=== PATIENT | male | born 1965 | race Caucasian/White ===

== ENCOUNTER → 2016-10-08 | Outpatient (CLI) | payer OTHER ==
--- NOTE | 2016-10-08 10:50 | REP ---
MRI LUMBAR SPINE WITHOUT CONTRAST: HISTORY: Radiculitis. Decreased signal intensity on T2-weighted images is present in the T12-L1 through L2-3 and L5-S1 intervertebral discs. The discs are decreased in height. These findings are consistent with disc degeneration. There is no disc bulge or herniation at the L1-2 through L3-4 levels. The nerves exit the neural foramina without compression. A diffuse disc bulge is present at the L4-5 level. There is minimal compression of the thecal sac. The L4 nerves exit the neural foramina without compression. A diffuse disc bulge and mild size disc extrusion central and eccentric to the left are present at the L5-S1 level. There is superior migration of disc material. There is minimal compression of the thecal sac and left S1 nerve as it exits the thecal sac. The disc extrusion abuts the right S1 nerve. The L5 nerves exit the neural foramina without compression. The conus medullaris is normal in appearance terminating at the level of the T12-L1 intervertebral disc. Normal signal intensity is present in the lumbar vertebral bodies. IMPRESSION: 1. Diffuse disc bulge at the L4-5 level with minimal thecal sac compression. 2. Diffuse disc bulge and mild size disc extrusion central and eccentric to the left at the L5-S1 level with minimal compression of the thecal sac and left S1 nerve as it exits the thecal sac. Signed by Samir Lezama MD 10/08/2016 10:52 A
== END ==
LOC: M RAD 09:23
PROVIDERS: ATTEND Pain Medicine Interventional Pain Medicine
DX: M51.26 Other intervertebral disc displacement, lumbar region (principal); M51.27 Other intervertebral disc displacement, lumbosacral region; M47.816 Spondylosis without myelopathy or radiculopathy, lumbar region; M47.817 Spondylosis without myelopathy or radiculopathy, lumbosacral region; M51.36 Other intervertebral disc degeneration, lumbar region; M51.37 Other intervertebral disc degeneration, lumbosacral region; M54.16 Radiculopathy, lumbar region

== ENCOUNTER → 2016-11-21 | Outpatient (CLI) | payer OTHER ==
[~2016-11-21] VITALS: Ht 175.3 cm; Wt 104.3 kg
[~2016-11-21] MED LIST: ATEN50TA2 PO; FISH1000 PO; MULT1TAB18 PO; NS 1,000 ML IV SCH; PANT40TA2 PO; PROPOFOL 200 MG/20 ML VIAL As Ordered ONE
--- NOTE | 2016-11-21 08:16 | ROOR ---
Patient Name: Bernard Eden Procedure Date: 11/21/2016 7:53 AM Date of : 1965 Age: 51 Room: [facility], [facility]IN [facility] Gender: Male Note Status: Finalized Procedure: Colonoscopy to Cecum + ileoscopy Indications: Abdominal pain in the right lower quadrant, Abnormal CT of the GI tract Providers: Eddy Da Silva MD Referring MD: Evelyn Khan DO Requesting Provider: Medicines: Monitored Anesthesia Care Complications: No immediate complications. Procedure: Pre-Anesthesia Assessment: - The heart rate, respiratory rate, oxygen saturations, blood pressure, adequacy of pulmonary ventilation, and response to care were monitored throughout the procedure. The Colonoscope was introduced through the anus and advanced to 3 cm into the ileum. The colonoscopy was performed without difficulty. The patient tolerated the procedure well. The quality of the bowel preparation was good. Findings: The perianal and digital rectal examinations were normal. Non-bleeding internal hemorrhoids were found during retroflexion. The hemorrhoids were small and Grade I (internal hemorrhoids that do not prolapse). No other significant abnormalities were identified in a careful examination of the remainder of the colon. The exam was otherwise without abnormality. The distal ileum contained a few ulcers. Impression: - Non-bleeding internal hemorrhoids. - The examination was otherwise normal. - A few ulcers in the distal ileum. - No specimens collected. - The exam was otherwise normal to the cecum. Recommendation: - Patient has a contact number available for emergencies. The signs and symptoms of potential delayed complications were discussed with the patient. Return to normal activities tomorrow. Written discharge instructions were provided to the patient. - High fiber diet. - Discharge patient to home. - Continue present medications. - Repeat colonoscopy in 10 years for screening purposes. - Return to referring physician. - The findings and recommendations were discussed with the patient's family. Eddy Da Silva MD Eddy Da Silva MD 11/21/2016 8:16:18 AM This report has been signed electronically. Number of Addenda: 0 Note Initiated On: 11/21/2016 7:53 AM Estimated Blood Loss: Estimated blood loss: none.
[2016-11-21 08:35] VITALS: BP 114/56
== END | disposition home or self-care (01) ==
LOC: M OPP 07:06
PROVIDERS: ATTEND Internal Medicine Gastroenterology
DX: K64.0 First degree hemorrhoids (principal); R10.31 Right lower quadrant pain; I10 Essential (primary) hypertension; R12 Heartburn; G47.30 Sleep apnea, unspecified; Z79.899 Other long term (current) drug therapy

== ENCOUNTER 2020-08-07 18:16 | Emergency (ER) | payer OTHER ==
[~2020-08-07] VITALS: Ht 175.3 cm; Wt 110.0 kg
[~2020-08-07 18:16] MED LIST changes: -NS 1,000 ML IV SCH; -PANT40TA2 PO; +PANT40TA29 PO; -PROPOFOL 200 MG/20 ML VIAL As Ordered ONE
[2020-08-07] MEDS ORDERED: ASPIRIN 81 MG CHEW TABLET PO ONE (19:00)
[2020-08-07] MEDS ORDERED: NS 1,000 ML IV ONE (19:00)
[2020-08-07 19:13] LABS: BASO % 0.3 % (0.0-1.0); EOS # 0.1 10^3/uL (0.0-0.5); HEMATOCRIT 40.3 % (42.0-52.0); HEMOGLOBIN 13.4 g/dl (13.5-17.5); LYMPH # 1.8 10^3/uL (1.5-5.0); LYMPH % 30.2 % (24.0-44.0); MEAN CORPUSCULAR HEMOGLOBIN 30.3 pg (27.0-33.0); MEAN CORPUSCULAR HGB CONC 33.3 g/dl (32.0-36.5); MEAN CORPUSCULAR VOLUME 91.2 fl (80.0-96.0); MONO # 0.5 10^3/uL (0.0-0.8); NEUTROPHILS # 3.6 10^3/uL (1.5-8.5); PLATELET COUNT, AUTOMATED 246 10^3/uL (150-450); RED BLOOD COUNT 4.42 10^6/uL (4.30-6.10)
[2020-08-07 19:35] LABS: ALBUMIN 3.9 GM/DL (3.2-5.2); ALT/SGPT 35 U/L (12-78); BILIRUBIN,DIRECT 0.1 MG/DL (0.0-0.2); BILIRUBIN,TOTAL 0.6 MG/DL (0.2-1.0); BLOOD UREA NITROGEN 14 MG/DL (7-18); CALCIUM LEVEL 8.6 MG/DL (8.5-10.1); CARBON DIOXIDE LEVEL 27 MEQ/L (21-32); CHLORIDE LEVEL 107 MEQ/L (98-107); CK-MB VALUE MASS 1.3 NG/ML (<3.6); CPK CREATINE PHOSPHOKINASE 207 U/L (39-308); CREATININE FOR GFR 0.97 MG/DL (0.70-1.30); ETHYL ALCOHOL (ETHANOL) 0.003 % (0.000-0.010); GLOMERULAR FILTRATION RATE > 60.0 (>56); GLUCOSE, FASTING 147 MG/DL (70-100); MAGNESIUM LEVEL 2.2 MG/DL (1.8-2.4); MB/CK RELATIVE INDEX 0.63 (< OR =4); POTASSIUM SERUM 3.4 MEQ/L (3.5-5.1); SODIUM LEVEL 142 MEQ/L (136-145); TOTAL PROTEIN 6.9 GM/DL (6.4-8.2); TROPONIN I < 0.02 NG/ML (< 0.10)
--- NOTE | 2020-08-07 19:40 | REP ---
INDICATION: CHEST PAIN COMPARISON: 11/16/2010 TECHNIQUE: Portable AP view of the chest FINDINGS: The mediastinum and cardiac silhouette are stable and within normal limits for portable technique. The lung pereira are clear without acute consolidation, effusion, or pneumothorax. Skeletal structures are intact. IMPRESSION: No acute cardiopulmonary process appreciated. <Electronically signed by Bernard Srivastava > 08/07/20 1935
--- NOTE | 2020-08-07 20:08 | ECGEPIP ---
[facility] - ED Test Date: 2020-08-07 Pat Name: SARA RODAS Department: Room: - Gender: Male Rn Lactation Consultant: : 1965 Requested By: Edna Siddiqi Order Number: [id number] Reading MD: Edna Siddiqi Measurements Intervals [place] Rate: 114 P: 26 IN: 152 QRS: -7 QRSD: 113 T: 175 QT: 301 QTc: 416 Interpretive Statements SINUS TACHYCARDIA LOW QRS VOLTAGE IN PRECORDIAL LEADS INCOMPLETE RIGHT BUNDLE BRANCH BLOCK ST DEVIATION AND MODERATE T-WAVE ABNORMALITY, CONSIDER ANTERIOR ISCHEMIA INFERIOR WALL NM, AGE UNDETERMINED NO PRIOR ECG FOR COMPARISON Electronically Signed on 08-07-2020 20:08:23 EST by Edna Siddiqi
[2020-08-07 20:39] VITALS: BP 163/83
== END 2020-08-07 20:44 | disposition home or self-care (01) ==
LOC: M ED 18:16
DX: R00.2 Palpitations (principal); I10 Essential (primary) hypertension; Z79.899 Other long term (current) drug therapy
CPT/HCPCS: 36415; 71045; 80048; 80076; 82550; 82553; 83735; 84484; 85025; 93005; 93041; 94760; 99285; G0480

== ENCOUNTER → 2024-07-06 | Outpatient (CLI) | payer OTHER | LOC: M ADAMS 11:42 | PROVIDERS: ATTEND Nurse Practitioner Family | DX: M54.2 Cervicalgia (principal); M47.813 Spondylosis without myelopathy or radiculopathy, cervicothoracic region; M46.03 Spinal enthesopathy, cervicothoracic region ==

== ENCOUNTER → 2025-01-12 | Outpatient (CLI) | payer OTHER | LOC: M SOG 07:55 | PROVIDERS: ATTEND Physician Assistant | DX: M79.644 Pain in right finger(s) (principal) ==

== ENCOUNTER → 2025-06-23 | Outpatient (REF) | payer OTHER | LOC: M LAB REF 14:31 | PROVIDERS: ATTEND Nurse Practitioner Family | DX: R53.83 Other fatigue (principal) ==